=== PATIENT | female | born 1975 | race Caucasian/White ===

== ENCOUNTER → 2024-01-05 08:30 | Outpatient (REF) | payer BC, SELFPAY ==
[2024-01-05 09:23] LABS: % Basophils 0.4 % (0-2); % Eosinophils 4.1 % (0-6); % Immature Granulocytes 0.7 % (0-0.5); % Lymphocytes 27.2 % (20.5-51.1); % Monocytes 6.4 % (1.7-9.3); % Neutrophils 61.2 % (42.2-75.2); Absolute Eosinophils 0.3 10^3/uL (0-0.7); Absolute Immature Granulocytes 0.1 10^3/uL (0-0.05); Absolute Monocytes 0.5 10^3/uL (0.1-0.6); Absolute Neutrophils 4.6 10^3/uL (1.4-6.5); Hematocrit 37.3 % (37.0-47.0); Hemoglobin 13.2 g/dL (12.0-16.0); Mean Corp Hgb Conc. 35.4 g/dL (33.0-37.0); Mean Corpuscular Hgb 30.4 pg (27.0-31.0); Mean Corpuscular Volume 85.9 fL (81.0-99.0); Mean Platelet Volume 9.2 fL (7.4-10.4); Nucleated Red Blood Cells % 0 %; Platelet Count 315 10^3/uL (130-400); Red Blood Cell Count 4.34 10^6/uL (4.20-5.40); Red Cell Dist. Width 13.9 % (11.5-14.5); White Blood Cell Count 7.5 10^3/uL (4.8-10.8)
[2024-01-05 10:36] LABS: ALT (SGPT) 38 U/L (0-35); AST (SGOT) 33 U/L (14-36); Albumin 4.4 g/dl (3.5-5.0); Alkaline Phosphatase 78 U/L (38-126); Blood Urea Nitrogen 11 mg/dl (7-17); Calcium 9.6 mg/dl (8.4-10.2); Carbon Dioxide 24 mmol/L (22-30); Chloride 100 mmol/L (98-107); Glucose 109 mg/dl (70-99); HDL Cholesterol 53 mg/dl; LDL Cholesterol, Calculated 59 mg/dl; Potassium 4.6 mmol/L (3.5-5.1); Sodium 135 mmol/L (135-145); Total Bilirubin 0.9 mg/dl (0.2-1.3); Total Cholesterol 144 mg/dl (50-199); Total Protein 7.2 g/dl (6.3-8.2); Triglyceride 164 mg/dl (10-149); Very Low Density Lipoprotein 32 mg/dl (0-30); eGFR > 60.00
[2024-01-05 10:57] LABS: TSH Reflex To Free T4 1.76 uIU/ml (0.47-4.68)
[2024-01-05 11:52] LABS: Glycohemoglobin (HgbA1c) 6.2 % (4.0-5.6)
== END ==
LOC: REG 08:30
PROVIDERS: ATTENDING PHYSICIAN Internal Medicine; FAMILY PHYSICIAN Family Medicine
DX: R73.01 Impaired fasting glucose (principal); E78.2 Mixed hyperlipidemia; E03.9 Hypothyroidism, unspecified; C49.9 Malignant neoplasm of connective and soft tissue, unspecified
CPT/HCPCS: 36415; 80053; 80061; 83036; 84443; 85025

== ENCOUNTER → 2024-05-17 11:23 | Outpatient (REF) | payer BC, SELFPAY | LOC: WDC 11:23 | PROVIDERS: ATTENDING PHYSICIAN Obstetrics & Gynecology; FAMILY PHYSICIAN Family Medicine | DX: Z12.31 Encounter for screening mammogram for malignant neoplasm of breast (principal) | CPT/HCPCS: 77063; 77067 ==

== ENCOUNTER 2024-11-20 21:54 | Emergency (ER) | payer BC, SELFPAY ==
[2024-11-20 21:56] VITALS: BP 174/104
[2024-11-21 01:16] VITALS: BP 139/68
[2024-11-21 01:24] VITALS: BMI 30.1
[2024-11-21 01:28] LABS: % Basophils 0.4 % (0-2); % Eosinophils 1.7 % (0-6); % Immature Granulocytes 1.6 % (0-0.5); % Lymphocytes 22.9 % (20.5-51.1); % Monocytes 11.7 % (1.7-9.3); % Neutrophils 61.7 % (42.2-75.2); Absolute Eosinophils 0.1 10^3/uL (0-0.7); Absolute Immature Granulocytes 0.1 10^3/uL (0-0.05); Absolute Lymphocytes 1.9 10^3/uL (1.2-3.4); Absolute Neutrophils 5.1 10^3/uL (1.4-6.5); Hematocrit 23.7 % (37.0-47.0); Hemoglobin 8.1 g/dL (12.0-16.0); Mean Corp Hgb Conc. 34.2 g/dL (33.0-37.0); Mean Corpuscular Hgb 31.6 pg (27.0-31.0); Mean Corpuscular Volume 92.6 fL (81.0-99.0); Mean Platelet Volume 8.9 fL (7.4-10.4); Nucleated Red Blood Cells % 0.4 %; Platelet Count 222 10^3/uL (130-400); Red Blood Cell Count 2.56 10^6/uL (4.20-5.40); Red Cell Dist. Width 18.7 % (11.5-14.5); White Blood Cell Count 8.3 10^3/uL (4.8-10.8)
[2024-11-21 01:44] LABS: ALT (SGPT) 37 U/L (0-35); AST (SGOT) 24 U/L (14-36); Albumin 3.9 g/dl (3.5-5.0); Alkaline Phosphatase 101 U/L (38-126); Blood Urea Nitrogen 8 mg/dl (7-17); Calcium 9.5 mg/dl (8.4-10.2); Carbon Dioxide 27 mmol/L (22-30); Chloride 101 mmol/L (98-107); Estimated Creatinine Clearance > 125 ml/min; Glucose 110 mg/dl (70-99); Sodium 139 mmol/L (135-145); Total Bilirubin 0.8 mg/dl (0.2-1.3); Total Protein 5.9 g/dl (6.3-8.2); eGFR > 60.00
[2024-11-21 02:00] VITALS: BP 134/74
--- NOTE | 2024-11-21 02:01 | ED.GENMED ---
History of Present Illness
General
Chief Complaint: Swelling
Source: patient
Time Seen by Provider: 11/21/24 00:19
Nursing documentation reviewed up to this point in time: agreed with
History of Present Illness
History of Present Illness:
Pleasant 49-year-old female presents to the emergency department with left ankle swelling. She is getting IV chemotherapy for leiomyosarcoma. She currently on doxorubicin and noticed that her blood counts are low. She spoke with her oncologist
who advised her to come in to get an ultrasound of the leg. Patient states that she has some shortness of breath but reports that that this is normal when she is on her chemotherapeutic treatment. She states that her shortness of breath is her
baseline. Denies fever, chills, nausea or vomiting.
Past History
Past History
ED Past Medical History: Hypothyroidism and Other (Pre-diabetes on metformin)
ED Past Surgical History: Cholecystectomy and
Social History
Tobacco: Non-smoker
Alcohol: None
Drug: None
Personal:
Living: with family
Employment: Employed
Family History
Family History: Other (nc)
Review of Systems
Review of Systems
Allergies reviewed?: Yes
Other source history: family
All Other Systems: ROS reviewed and negative except as documented in HPI and ROS
Constitutional: Reports no symptoms
EENT: Reports no symptoms
Respiratory: Reports trouble breathing
Cardiac: Reports no symptoms
ABD/GI: Reports no symptoms
: Reports no symptoms
Musculoskeletal: Reports edema
Skin: Reports no symptoms
Neurological: Reports no symptoms
Endocrine: Reports no symptoms
Hematologic/Lymphatic: Reports no symptoms
Psychiatric: Reports no symptoms
Phy Exam
General Physical Exam
General Presentation: well appearing and mild distress
General Skin: warm and dry
General Habitus: normal
General Mental: alert
General Hydration: appears well hydrated
ENT Exam
ENT Exam: EOMI, pharynx normal, neck supple and normocephalic
Eye Exam
Eye Exam: PERRL, cornea clear and conjunctiva normal
Cardiovascular Exam
Cardiovascular Exam: regular rate/rhythm, no edema, no murmur and normal peripheral pulses
Pulmonary Exam
Pulmonary Exam: lungs clear, no respiratory distress, no rales, no crackles, no rhonchi, no stridor, no wheezing and no cough
Gastrointestinal Exam
Gastrointestinal Exam: normal bowel sounds, non tender, soft, no organomegaly, no pulsatile mass and non distended
Neurological Exam
Neurological Exam: alert, oriented x3, no motor deficits and speech normal
Musculoskeletal Exam
Musculoskeletal Exam: edema (Left lower extremity edema)
Skin Exam
Skin Exam: normal color, warm/dry, no rash and no petechia
Psychiatric Exam
Psychiatric Exam: normal mood/affect
Scores
Heart Failure Risk
Heart Failure Risk Score: Not Applicable
Course
Orders/Labs/Results
Orders:
Orders
11/20/24 21:59
EKG [Electrocardiogram (*1)] Urgent
Reason for Study: Shortness of Breath
11/20/24 22:00
EKG- Treatment ONCE
11/21/24 01:10
Complete Blood Count/With Diff Urgent
Comprehensive Metabolic Panel Urgent
11/21/24 01:52
US Legs, Left [US Periph Venous LOWER Ext LT] Urgent
Comment:
Reason For Exam: lower extremity swellig
Abnormal Lab Results
11/21/24
01:10
RBC 2.56 L 10^6/uL
(4.20-5.40)
Hgb 8.1 L g/dL
(12.0-16.0)
Hct 23.7 L %
(37.0-47.0)
MCH 31.6 H pg
(27.0-31.0)
RDW 18.7 H %
(11.5-14.5)
Abs Immat Gran (auto) 0.1 H 10^3/uL
(0-0.05)
Absolute Monos (auto) 1.0 H 10^3/uL
(0.1-0.6)
Immature Gran % 1.6 H %
(0-0.5)
Monocytes % 11.7 H %
(1.7-9.3)
Glucose 110 H mg/dl
(70-99)
ALT 37 H U/L
(0-35)
Total Protein 5.9 L g/dl
(6.3-8.2)
11/21/24 01:10
11/21/24 01:10
Vital Signs
Initial and Last Documented VS:
Initial Vital Signs
Temp Pulse Resp BP Pulse Ox
99.1 F 121 20 174/104 98
11/20/24 21:56 11/20/24 21:56 11/20/24 21:56 11/20/24 21:56 11/20/24 21:56
Last Documented Vital Signs
Temp Pulse Resp BP Pulse Ox
99.1 F 121 20 138/77 98
11/20/24 21:56 11/20/24 21:56 11/20/24 21:56 11/21/24 03:43 11/21/24 03:01
*Pulse Oximetry
Patient hypoxic: no
*EKG
Interpreted by ED Provider?: Yes
Comparison EKG: changes noted
Heart Rate: 109
Rate: tachycardiac
Rhythm: sinus
[place]: normal axis
Interval: normal interval
QRS Pattern: normal QRS
Ischemia: no ischemia
*Personal Finance Instructor Interpretation
Rate: normal
Interpretation: normal
Heart Rate: 72
*Critical Care Note
Total Time (30-74mins, 75-104mins- exclusive of procedures): Not Applicable
Update Note
Update Note:
Discussed hemoglobin of 8.1 with patient. She denies any obvious rectal bleeding. She states that she has been anemic during her chemotherapeutic treatments. Her last hemoglobin was approximately 10 and she received Neulasta. She states that she
was a few days late for the Neulasta. She will touch base with her oncologist at [facility] and discussed treatment options. She understands that she may have to return to the emergency department. Patient being discharged in stable
condition.
ED Attending Note
-
Portions of this chart may have been created with voice recognition software.� Occasional wrong word or��sound alike� substitutions may have occurred due to the inherent limitations of voice recognition software.
Discharge Plan
Departure
Patient Disposition: Home (Routine Discharge)
Date of Disposition: 11/21/24
Time of Disposition: 03:38
Patient with high blood pressure during this ER visit?: Yes
Discharge Problem:
Left leg swelling, Anemia
Instructions: Dependent Edema (DC), Swelling, Anemia overview, BLOOD PRESSURE
Prescriptions:
No Action
oxycodone-acetaminophen 5 MG/325 MG tablet
1 - 2 tab PO Q4HPRN PRN (Reason: pain not relieved by ibuprofen) Qty: 15 0RF
ibuprofen 200 MG tablet
600 mg PO Q6HPRN PRN (Reason: pain) Qty: 0 0RF
Referrals:
Homer Fajardo Jr., DO [Family Provider] -
Activity Restrictions/Additional Instructions:
As discussed, please follow-up with your oncologist at [facility]. A copy of your lab work has been provided.
It was a pleasure meeting you and taking part in your care. We hope for your continued healing and wellness.
Please read discharge instructions in their entirety. However, they are for general education and may not describe your exact diagnosis at discharge. Information on your ER visit and medical conditions were discussed with you along with appropriate
follow up information...
If indicated, please take your medications as instructed and indicated on discharge paperwork.
Please schedule a follow up appointment as directed. Call to schedule an appointment
Please return to the emergency department with ANY change in, persisting, or worsening of symptoms. If any of your symptoms do not improve, or persist, or become more severe within 6-12 hours, please return to the emergency department for further
care.
Please return to the emergency department if you develop a headache, neck pain/stiffness, fever greater than 100.4F, chest pain, shortness of breath, persistent nausea, vomiting, slurred speech, difficulty walking, numbness/tingling, weakness, signs
of infection or any other symptoms that are worrisome to you.
If you have any questions or concerns please do not hesitate to call the Hospital at or E-mail me directly at [email or web address]
Interventions
Interventions:
*Risk Screen - Suicide Last Done: 11/20/24 21:56
*General Assessment Last Done: 11/21/24 01:17
*Neglect/Abuse Screening Last Done: 11/20/24 21:56
ED- Fall Risk Assessment Last Done: 11/21/24 01:24
*ED COVID-19 Vaccine History Last Done: 11/21/24 01:17
*Nursing Disposition Last Done: 11/21/24 03:51
ED- Cardiac Assessment Last Done: 11/21/24 01:24
ED- Pulmonary Assessment Last Done: 11/21/24 01:16
ED-Skin Assessment Last Done: 11/21/24 01:16
Discharge Date and Time
Discharge Date/Time: 11/21/24 03:51
Print Language: CROATIAN
[2024-11-21 03:43] VITALS: BP 138/77
== END 2024-11-21 03:51 | disposition home or self-care (01) ==
LOC: EMR 21:54
PROVIDERS: EMERGENCY PHYSICIAN Student in an Organized Health Care Education/Training Program; FAMILY PHYSICIAN Family Medicine
DX: R22.42 Localized swelling, mass and lump, left lower limb (principal); D64.9 Anemia, unspecified; E03.9 Hypothyroidism, unspecified; R73.03 Prediabetes; Z90.49 Acquired absence of other specified parts of digestive tract
CPT/HCPCS: 99283; 80053; 85025; 93005; 93971

== ENCOUNTER 2024-12-26 03:08 | Inpatient (IN) | payer BC, SELFPAY ==
[2024-12-25 20:59] VITALS: BP 147/79
[2024-12-25 21:36] VITALS: BP 117/68
[2024-12-25 21:38] VITALS: BMI 36.4
[2024-12-25 23:20] LABS: Hematocrit 20.8 % (37.0-47.0); Hemoglobin 7.3 g/dL (12.0-16.0); Mean Corp Hgb Conc. 35.1 g/dL (33.0-37.0); Mean Corpuscular Hgb 33.3 pg (27.0-31.0); Red Blood Cell Count 2.19 10^6/uL (4.20-5.40); Red Cell Dist. Width 14.4 % (11.5-14.5); White Blood Cell Count 1.9 10^3/uL (4.8-10.8)
[2024-12-25 23:23] LABS: Blood Urea Nitrogen 10 mg/dl (7-17); Carbon Dioxide 23 mmol/L (22-30); Chloride 102 mmol/L (98-107); Estimated Creatinine Clearance > 125 ml/min; Glucose 151 mg/dl (70-99); Potassium 3.9 mmol/L (3.5-5.1); Sodium 136 mmol/L (135-145); eGFR > 60.00
[2024-12-25 23:43] LABS: Mean Platelet Volume 10.2 fL (7.4-10.4); Platelet Count 86 10^3/uL (130-400); Segmented Neutrophils 22 % (42-75)
[2024-12-25 23:44] LABS: Band Neutrophils 0 % (0-3); Lymphocytes 70 % (20-51); Monocytes 8 % (2-9); Normal RBC Morphology Yes; Platelets Checked Yes; Total Cells Counted 100
[2024-12-25 23:45] LABS: Absolute Neutrophils -Man Diff 0.4 10^3/uL (1.4-6.5)
--- NOTE | 2024-12-25 23:46 | ED.GENMED ---
History of Present Illness
General
Chief Complaint: Abnormal Lab Value
Source: patient and family
Time Seen by Provider: 12/25/24 21:37
History of Present Illness
History of Present Illness:
49-year-old female who presents for evaluation as she has been feeling short of breath and weak. She was seen at an 'urgent care' associated with [facility]. She had extensive workup including a CT to rule out PE. They advised that she go to
a nearby hospital for transfusion but she wanted to come to [place]. Patient is being treated with chemotherapy for leiomyosarcoma. Patient states she has been on it for several months. She is due for another treatment on January 06. She was
advised that she also may benefit from an echocardiogram to rule out cardiomyopathy related to her chemo. No chest pain. Patient states that she really just does not feel well in general. She presents with paperwork that is scanned in from the
urgent care center. In addition, she presents agraffe her hemoglobin that was normally at 12 but has dropped over time.
Past History
Past History
ED Past Medical History: Cancer (leiomyomyosarcoma), Hypothyroidism and Other (Pre-diabetes on metformin)
ED Past Surgical History: Cholecystectomy and
Social History
Tobacco: Non-smoker
Alcohol: None
Drug: None
Personal:
Living: with family
Employment: Employed
Family History
Family History: Other (nc)
Phy Exam
Physical Exam
Physical Exam:
CONSTITUTIONAL Vital signs reviewed, Patient alert and oriented to person, place and time. Well-appearing
HEAD atraumatic, normocephalic.
EYES eyelids normal to inspection, Extraocular muscles intact, Conjunctiva normal, Sclera normal.
NECK normal range of motion, Trachea midline, no jugular venous distention.
RESP no respiratory distress
BACK No obvious deformities
Cardiovascular regular and tachycardic
UPPER EXTREMITY Gross Range of motion normal, gross motor strength normal
LOWER EXTREMITY Gross range of motion normal, Gross motor strength normal
NEURO Speech normal, No focal motor deficits include, [place] coma scale 15, Memory normal, Cranial Nerves intact to screening exam.
SKIN Skin warm, dry, and normal in color.
PSYCHIATRIC Patient oriented to person place and time, Normal affect.
Course
Orders/Labs/Results
Orders:
Orders
12/25/24 22:11
* Blood Bank Products Urgent
Blood Bank Products: *Packed RBC Leuko(PRBC's)
Quantity: 1
Transfuse Today: Yes
Reason: Anemia
12/25/24 22:12
IV Insert/Care/Rem.- Treatment PRN
12/25/24 22:56
Type+Screen Urgent
Basic Metabolic Panel Urgent
Complete Blood Count/With Diff Urgent
Manual Differential Urgent
12/25/24 23:46
COVID-19 Antigen Urgent
Source: Nasal Swab
Influenza A+B Rapid Molecular Urgent
VLAD Source: Nasal Swab
Specimen Description:
12/25/24 23:52
Electrocardiogram (*1) Urgent
Reason for Study: Shortness of Breath
EKG- Treatment ONCE
12/25/24 23:54
Lactic Acid Q4H
Comment: CANCEL 2nd LACTIC ACID IF 1st LACTIC ACID IS LESS THAN 2
Blood Culture Q30M
VLAD Source: Blood/Venous
Specimen Description:
12/26/24 00:00
CR Chest - 2 Views Urgent
Reason For Exam: Shortness of breath, neutropenia
12/26/24 00:07
Blood Culture Q30M
VLAD Source: Blood/Venous
Specimen Description:
12/26/24 03:54
Lactic Acid Q4H
Comment: CANCEL 2nd LACTIC ACID IF 1st LACTIC ACID IS LESS THAN 2
Abnormal Lab Results
12/25/24 12/26/24
22:56 00:07
WBC 1.9 L* 10^3/uL
(4.8-10.8)
RBC 2.19 L 10^6/uL
(4.20-5.40)
Hgb 7.3 L g/dL
(12.0-16.0)
Hct 20.8 L* %
(37.0-47.0)
MCH 33.3 H pg
(27.0-31.0)
Plt Count 86 L 10^3/uL
(130-400)
Abs Neuts (Manual) 0.4 L* 10^3/uL
(1.4-6.5)
Segmented Neutrophils 22 L %
(42-75)
Lymphocytes (Manual) 70 H %
(20-51)
Glucose 151 H mg/dl
(70-99)
Lactic Acid 2.2 H mmol/L
(0.7-2.0)
Crossmatch IS Only See Detail
12/25/24 22:56
12/25/24 22:56
Vital Signs
Initial and Last Documented VS:
Initial Vital Signs
Temp Pulse Resp BP Pulse Ox
99.1 F 120 22 147/79 99
12/25/24 20:59 12/25/24 20:59 12/25/24 20:59 12/25/24 20:59 12/25/24 20:59
Last Documented Vital Signs
Temp Pulse Resp BP Pulse Ox
99.1 F 107 20 117/68 98
12/25/24 20:59 12/26/24 00:00 12/26/24 00:00 12/25/24 21:36 12/26/24 00:00
MDM/Problems Addressed
Differential Diagnosis Includes:
Viral myelosuppression, chemotherapeutic myelosuppression, pneumonia, electrolyte disturbance
MDM/Problems Addressed:
Pancytopenia, symptomatic anemia
*Pulse Oximetry
Patient hypoxic: no
*Linemarker Interpretation
Rate: tachycardiac
Interpretation: abnormal
Rhythm: sinus
*Critical Care Note
Total Time (30-74mins, 75-104mins- exclusive of procedures): Not Applicable
Data Reviewed
Review of Other/Old Records Reveals: Labs (Prior labs reviewed showing a trend downward of her hemoglobin)
Source: patient and family
Further Testing Considered But Not Given:
Considered CT scan but patient had a PE study prior to arrival
Patient Management
Discussion with other providers: Field Ironworker (Case discussed with her oncologist who recommends admission given her pancytopenia)
Escalation/DeEscalation of care consider admission/obs:
49-year-old female presents with feeling short of breath and weak. Found to have pancytopenia. Question whether it is related to infection versus myelosuppression related to her chemotherapeutic agents despite being on it for several months. Case
discussed with her oncologist who recommends admission. Hemodynamically she is still tachycardic but otherwise stable. Transfuse 1 unit for now and continue to monitor. Check cultures, chest x-ray, viral swabs
ED Attending Note
-
Portions of this chart may have been created with voice recognition software.� Occasional wrong word or��sound alike� substitutions may have occurred due to the inherent limitations of voice recognition software.
Discharge Plan
Departure
Patient Disposition: Admit
Date of Disposition: 12/25/24
Time of Disposition: 23:55
Admit to: Telemetry
Presentation/result/management discussed w/ accepting MD/DO: Hospitalist
Discharge Problem:
Pancytopenia, Symptomatic anemia
Prescriptions:
No Action
oxycodone-acetaminophen 5 MG/325 MG tablet
1 - 2 tab PO Q4HPRN PRN (Reason: pain not relieved by ibuprofen) Qty: 15 0RF
ibuprofen 200 MG tablet
600 mg PO Q6HPRN PRN (Reason: pain) Qty: 0 0RF
Referrals:
Homer Fajardo Jr., DO [Family Provider] -
Interventions
Interventions:
*Risk Screen - Suicide Last Done: 12/25/24 21:02
*General Assessment Last Done: 12/25/24 20:59
*Neglect/Abuse Screening Last Done: 12/25/24 20:59
*ED- Fall Risk Assessment Last Done: 12/25/24 21:38
*ED COVID-19 Vaccine History Last Done: 12/25/24 20:59
Discharge Date and Time
Print Language: BARBADIAN
--- NOTE | 2024-12-25 23:54 | VATNOTE ---
PT ARRIVED TO ED FROM [facility] WITH L SUBQ PRT ACCESSED. PT HERE FOR BLOOD TRANSFUSION. PT REPORTS ON GOING PROBLEMS WITH BLOOD WITHDRAWAL FROM PRT RECENTLY TODAY AT [facility]. DESPITE MULTIPLE ATTEMPTS UNABLE TO DRAW LABS FROM PRT. PT TO
REQUEST DYE STUDY FROM HER ONCOLOGIST AND CARE TEAM AT [facility]. LABS OBTAINED PERIPHERLLY . PRT ERICK TO BE USED FOR BLOOD TRANSFUSION WAS USED TODAY AT [facility] FOR MULTIPLE TREATMENT MODALITIES.
[2024-12-26] VITALS (10 sets, daily range): BP systolic 113–136; BP diastolic 66–81
[2024-12-26 00:31] LABS: Lactic Acid 2.2 mmol/L (0.7-2.0)
--- NOTE | 2024-12-26 02:24 | HPS.HSE ---
Family Physician
-
Family Physician: Homer Fajardo Jr.
Chief Complaint
-
SOB
History of Present Illness
Patient is a 49y F with PMH significant for leiomyosarcoma followed at [facility] who presents to ED complaining of SOB and pancytopenia. Patient is currently receiving chemotherapy at [facility] with doxorubicin and trabectedin and
received her most recent dose on 12/16. Patient states that she has experienced gradually progressive symptoms of weakness / fatigue following these treatments. This week her symptoms were severe and she presented to a [facility]associated Urgent Care
for evaluation. Patient was noted there to have pancytopenia. It was recommended that she be admitted to a hospital for blood transfusion and patient elected to present to (close to where she lives).
Other work-up done at that time included CT of the chest. This was negative for PE. Some pulmonary nodules were appreciated as well as bibasilar (R > L) ground glass opacities - consistent with inflammation, infection or atelectasis.
CT also showed small pericardial effusion.
Patient states that she has felt fairly well other than fatigue and dyspnea. No fevers / chills, cough, N/V/D, etc.
She has had issues with low cell counts since beginning chemo - and these have also been progressive.
She does receive Neulasta via auto-injector following her chemo treatments and had this dose last week ( / ).
In the ED, patient is resting comfortably and in no distress.
Medical History
Past Medical History
Past Medical History: Reports Other
Additional Past Medical History:
Metastatic Leiomyosarcoma
Appendiceal Carcinoma
SDHA Gene Mutation
PCOS
Hypothyroidism
Obesity
Anxiety / Depression
Past Surgical History: Reports Other
Additional Past Surgical History:
Left Ovarian Vein / Leiomyosarcoma Resection
Appendectomy
Cholecystectomy
D&E
Social History
Tobacco: Non-smoker
Alcohol: None
Drug: None
Family History
Family History: Adopted
Allergies / Home Medications
Allergies reflects when Allergies were last updated in [facility].
Home Medications with original date entered in [facility]
Allergy/Medication List:
Allergies
Allergy/AdvReac Type Severity Reaction Status Date / Time
No Known Allergies Allergy Verified 12/26/24 01:17
Home Medications
acetaminophen 500 mg tablet 1,000 mg PO TID 12/26/24
atorvastatin 10 mg tablet 10 mg PO HS 12/26/24
bupropion HCl 300 mg 24 hr tablet, extended release 300 mg PO DAILY 12/26/24
cholecalciferol (vitamin D3) 50 mcg (2,000 unit) tablet 50 mcg PO DAILY 12/26/24
levothyroxine 100 mcg tablet 100 mcg PO DAILY 12/26/24
metformin 500 mg tablet,extended release 24hr (osmotic) 500 mg PO BID 12/26/24
olanzapine 2.5 mg tablet 2.5 mg PO HS 12/26/24
omega 3-vitamin E-fish oil 700 mg-15 unit-1,100 mg capsule 1 cap PO 12/26/24
Review of Systems
-
History Source: Patient
A 12 point ROS was completed and negative except as noted: Yes
Constitutional: Reports Fatigue; Denies Fever or Chills
EENT: Denies Sore Throat
Respiratory: Reports Trouble Breathing; Denies Cough
Cardiac: Reports Palpitations; Denies Chest Pain
Abdomen/GI: Denies Abdominal Pain, Nausea, Vomiting or Diarrhea
: Denies Dysuria or Frequency
Musculoskeletal: Denies Joint Pain or Edema
Neurological: Denies Dizzy or Headache
Psych: Denies Depression or Anxiety
Physical Exam
Vital Signs
Vital Signs
Temp Pulse Resp BP Pulse Ox
98.8 F 103 22 136/68 96
12/26/24 01:09 12/26/24 01:45 12/26/24 01:45 12/26/24 01:09 12/26/24 01:45
Physical Exam
General: Other (49y F in no acute distress.)
HEENT: Moist mucous membranes and PERRLA
Respiratory: Clear; No Wheezes, Rales or Rhonchi
Cardiac: S1/S2 and Regular Rhythm; No Murmur
GI: Soft, Non Tender, Non Distended and Normal Bowel Sounds
Musculoskeletal: No Clubbing, No Cyanosis and No Edema
Neuro: AO x 3
Laboratory Results
-
12/25/24 22:56
12/25/24 22:56
Laboratory Results
Lactic Acid 2.2 mmol/L (0.7-2.0) H 12/26/24 00:07
Impression/Plan
-
A/P: Patient is a 49y F with PMH significant for metastatic leiomyosarcoma on chemotherapy who presents to ED for evaluation of pancytopenia and associated SOB / fatigue.
Symptomatic Anemia
Neutropenia
Thrombocytopenia
- Admit for further evaluation and treatment.
- PRBC transfusion ordered in the ED.
- Follow for improvement in H&H and symptoms.
- Check iron studies and replace if needed.
- Follow neutropenic precautions. ANC = 400. Afebrile / non-toxic appearing at present.
- Received Neulasta last week (27 hours post-chemo).
- HemeOnc eval - ? additional GCSF needed.
- Follow temperature curve and monitor for any new symptoms - low threshold to begin empiric abx if needed.
- Follow for any evidence of bleeding, etc.
Pericardial Effusion
- Seen on outside CT scan (done at [facility]) - patient has results on her phone / portal.
- Check Echo.
Metastatic Leiomyosarcoma
- On chemotherapy with doxorubicin and trabectedin - last dose 12/16 (dose #6).
- Followed at [facility]. Follow-up with usual providers after discharge.
Hypothyroidism
PCOS
- Stable. Hold metformin s/p CTA done 12/25/24.
- Continue usual T4 supplementation.
Anxiety / Depression
- Stable. Continue usual home regimen.
DVT Prophylaxis: SCDs
Code Status: Full
[2024-12-26 04:43] LABS: TSH Reflex To Free T4 2.23 uIU/ml (0.47-4.68)
[2024-12-26] MEDS: SYNTHROID 100 MCG PO (06:35)
[2024-12-26 07:07] LABS: Blood Urea Nitrogen 8 mg/dl (7-17); Calcium 8.9 mg/dl (8.4-10.2); Carbon Dioxide 29 mmol/L (22-30); Chloride 104 mmol/L (98-107); Estimated Creatinine Clearance > 125 ml/min; Glucose 119 mg/dl (70-99); Magnesium 1.9 mg/dl (1.6-2.3); Potassium 3.8 mmol/L (3.5-5.1); Sodium 138 mmol/L (135-145); eGFR > 60.00
[2024-12-26 07:11] LABS: Hematocrit 23.4 % (37.0-47.0); Hemoglobin 8.2 g/dL (12.0-16.0); Mean Corpuscular Hgb 32.3 pg (27.0-31.0); Mean Corpuscular Volume 92.1 fL (81.0-99.0); Mean Platelet Volume 9.5 fL (7.4-10.4); Platelet Count 75 10^3/uL (130-400); Red Blood Cell Count 2.54 10^6/uL (4.20-5.40); Red Cell Dist. Width 15.5 % (11.5-14.5); White Blood Cell Count 1.8 10^3/uL (4.8-10.8)
[2024-12-26] MEDS: TYLENOL 1000 MG PO (08:24)
[2024-12-26] MEDS: VITAMIN D3 (cholecalciferol) 50 MCG PO (08:24)
[2024-12-26] MEDS: WELLBUTRIN XL (24 hour extended release) 300 MG PO (09:48)
--- NOTE | 2024-12-26 09:56 | CON.ONC ---
Documented by User: MICHAEL Staples 12/26/24 11:06
Impression
Impression
metastatic leiomyosarcoma followed at [facility] [place]
pancytopenia secondary to doxorubicin and trabectedin with last dose on 12/16
small pericardial effusion
Plan
Plan
neutropenic precautions -remains afebrile -monitor for sxs infection
no role for add'l GCSF with pegfilgrastim 12/17
monitor for cardiomyopathy, rhabdomyolysis, neutropenic sepsis, hepatoxicity, capillary leak syndrome
f/u echo
transfuse Hgb <7g/dL or as needed for sxs anemia
avoid nsaids, anticoagulation, antiplatelet if platelets <50,000
follow cultures
check LFTs, cpk
OP follow up with primary oncologist
No hematologic barriers to discharge if CBC stable, no sxs infection, culture negative, and afebrile.
Patient History
History of Present Illness
49yo F with metastatic leiomyosarcoma followed at [facility] [place] presented for evaluation of SOB and fatigue. She had her last chemo, doxorubicin and trabectedin on 12/16/2024 with GCSF. Initial evaluation is notable for WBC 1.9, ANC 400, Hgb 7.3, Hct 20.8,
platelet count 86,000. Her CTA done at outside imaging at [facility] was negative for pulmonary emboli but did show some pulmonary nodules and a small pericardial effusion. Blood cultures are pending. She was admitted and transfused
with 1U PRBC.
Clinically, she denies fever, chills, cough, chest pain, palpitations, n/v/d/c or abdominal pain. She denies headache or any neurological changes.
Afebrile, no hypoxia or hypotension
Past-Medical/Surgical History
Past Medical History:
Metastatic Leiomyosarcoma
Appendiceal Carcinoma
SDHA Gene Mutation
PCOS
Hypothyroidism
Obesity
Anxiety / Depression
Past Surgical History:
Left Ovarian Vein / Leiomyosarcoma Resection
Appendectomy
Cholecystectomy
D&E
Social History
Tobacco: Non-smoker
Alcohol: None
Drug: None
Family non-contributory
Patient Medication
�Medication �Instructions �Recorded �Confirmed �Last Taken �Type
acetaminophen 500 mg tablet 1,000 mg PO TID 12/26/24 12/26/24 Unknown History
atorvastatin 10 mg tablet 10 mg PO HS 12/26/24 12/26/24 Unknown History
bupropion HCl 300 mg 24 hr tablet, 300 mg PO DAILY 12/26/24 12/26/24 Unknown History
extended release
cholecalciferol (vitamin D3) 50 50 mcg PO DAILY 12/26/24 12/26/24 Unknown History
mcg (2,000 unit) tablet
levothyroxine 100 mcg tablet 100 mcg PO DAILY 12/26/24 12/26/24 Unknown History
metformin 500 mg tablet,extended 500 mg PO BID 12/26/24 12/26/24 Unknown History
release 24hr (osmotic)
olanzapine 2.5 mg tablet 2.5 mg PO HS 12/26/24 12/26/24 Unknown History
omega 3-vitamin E-fish oil 700 1 cap PO 12/26/24 Unknown History
mg-15 unit-1,100 mg capsule
Active Medications
Generic Name Dose Route Start Last Admin
Trade Name Avniq PRN Reason Stop Dose Admin
Acetaminophen 1,000 mg 12/26/24 08:00 12/26/24 08:24
Acetaminophen 500 Mg Tablet PO 01/23/25 07:59 1,000 mg
TID DONNELL Administration
Atorvastatin Calcium 10 mg 12/26/24 22:00
Atorvastatin (Lipitor) 10 Mg Tablet PO 01/23/25 21:59
HS DONNELL
Bupropion HCl 300 mg 12/26/24 08:00 12/26/24 09:48
Bupropion (24hr) Extended Release 300 Mg Tablet PO 01/23/25 07:59 300 mg
DAILY DONNELL Administration
Cholecalciferol 50 mcg 12/26/24 08:00 12/26/24 08:24
Cholecalciferol (Vitamin D3) 50 Mcg Tablet (2,000 Units) PO 01/23/25 07:59 50 mcg
DAILY DONNELL Administration
Levothyroxine Sodium 100 mcg 12/26/24 06:00 12/26/24 06:35
Levothyroxine 100 Mcg Tablet PO 01/23/25 05:59 100 mcg
DAILY@0600 DONNELL Administration
Olanzapine 2.5 mg 12/26/24 22:00
Olanzapine 2.5 Mg Tablet PO 01/23/25 21:59
HS DONNELL
Sodium Chloride 0 flush 12/26/24 04:00
Sodium Chloride 0.9% (Flush) Syringe IV 01/23/25 03:59
PER PROTOCOL DONNELL
Review of Systems
-
ROS is notable for HPI, otherwise negative
Physical Exam
-
ROS is notable for HPI, otherwise negative
General: No Apparent Distress
HEENT: Moist Mucous Membranes; Negative Jaundice
Cardiology: Normal Sinus Rhythm
Pulmonary: Clear
GI: Soft
Extremities: Pulses Present; Negative Edema
Neurology: Non Focal
Skin: Warm
Psych: Calm
Labs
Lab Results
WBC 1.8 10^3/uL (4.8-10.8) L* 12/26/24 06:43
RBC 2.54 10^6/uL (4.20-5.40) L 12/26/24 06:43
Hgb 8.2 g/dL (12.0-16.0) L 12/26/24 06:43
Hct 23.4 % (37.0-47.0) L 12/26/24 06:43
MCV 92.1 fL (81.0-99.0) 12/26/24 06:43
MCH 32.3 pg (27.0-31.0) H 12/26/24 06:43
MCHC 35.0 g/dL (33.0-37.0) 12/26/24 06:43
RDW 15.5 % (11.5-14.5) H 12/26/24 06:43
Plt Count 75 10^3/uL (130-400) L 12/26/24 06:43
MPV 9.5 fL (7.4-10.4) 12/26/24 06:43
Creatinine 0.6 mg/dL (0.6-1.0) 12/26/24 06:43
Vital Signs
Vital Signs
Temp Pulse Resp BP Pulse Ox
98.6 F 100 18 113/69 97
12/26/24 08:31 12/26/24 04:02 12/26/24 04:02 12/26/24 04:02 12/26/24 04:01

Documented by User: Darrel Rodriges MD 12/26/24 12:35
Impression
Impression
metastatic leiomyosarcoma followed at [facility] [place]
pancytopenia secondary to doxorubicin and trabectedin with last dose on 12/16
small pericardial effusion
Oncology Addendum:
Agree w/ [employer] note and plan as outlined
f/u w/ [facility] [place]
[2024-12-26 10:26] LABS: % Eosinophils 2.2 % (0-6); % Immature Granulocytes 0.6 % (0-0.5); % Lymphocytes 58.7 % (20.5-51.1); % Monocytes 12.3 % (1.7-9.3); % Neutrophils 26.2 % (42.2-75.2); Absolute Lymphocytes 1.1 10^3/uL (1.2-3.4); Absolute Monocytes 0.2 10^3/uL (0.1-0.6); Absolute Neutrophils 0.5 10^3/uL (1.4-6.5); Nucleated Red Blood Cells % 0 %
[2024-12-26 10:51] LABS: ALT (SGPT) 46 U/L (0-35); AST (SGOT) 17 U/L (14-36); Albumin 3.4 g/dl (3.5-5.0); Alkaline Phosphatase 89 U/L (38-126); Creatine Phosphokinase < 20 U/L (30-135); Direct Bilirubin 0.2 mg/dl (0.0-0.4); Total Bilirubin 0.7 mg/dl (0.2-1.3); Total Protein 5.4 g/dl (6.3-8.2)
--- NOTE | 2024-12-26 10:55 | CM ---
Patient seen at bedside with in ED. Patient states she wants to go home. Patient PCP is Dr. Fajardo and she is currently on Chemo from [facility]. Patient lives in a 2 story home with no DME. Patient uses the [address] [facility] and she is
driving and independent. CM will continue to follow for discharge planning needs.
Plan; home with no needs.
--- NOTE | 2024-12-26 10:57 | W.PN.HOSP.TC ---
Today's Communication/Plan
-
Discharge
Assessment / Plan
Assessment / Plan
Gen-AAOx3, NAD
HEENT-NC, AT, anicteric, clear oral mm
Neck-supple
CV-reg, no M, +S1/S2
Lungs-clear B/L
Abd-soft, NT, ND
Ext-no edema
Musculoskeletal-no cyanosis, clubbing
Skin-warm and dry
Neuro-grossly non-focal
Psych-calm, cooperative
Symptomatic anemia -likely due to chemotherapy. Hemoglobin improved to 8.2 after transfusion. Symptomatically better.
Chemotherapy-induced pancytopenia -no fevers. No signs of infection. ANC 500. Follow-up closely with oncology. Spoke with oncology service, okay for discharge.
Metastatic leiomyosarcoma -follow[place]up with [facility] [place].
Questionable pericardial effusion -noted on CT scan. Offered echocardiogram to patient but she prefers to go home and get done as an outpatient. She has no signs or symptoms of pericardial effusion on exam.
Hypothyroidism -levothyroxine.
PCOS
Anxiety/depression
Obesity due to excess calories
Full code
Dispo -stable for discharge home today. Outpatient follow-up.
Anticipated Discharge: Today
Subjective/Interval History
-
Date of Service: December 26, 2024
Patient seen and examined. Feeling better. No complaints. Eager to go home.
Objective Data
-
Labs:
Laboratory Results
12/25/24 12/26/24
22:56 06:43
WBC 1.9 L* 1.8 L*
Hgb 7.3 L 8.2 L
Hct 20.8 L* 23.4 L
Plt Count 86 L 75 L
Sodium 136 138
Potassium 3.9 3.8
Chloride 102 104
Carbon Dioxide 23 29
BUN 10 8
Creatinine 0.6 0.6
Glucose 151 H 119 H
Calcium 9.0 8.9
Total Bilirubin 0.7
AST 17
ALT 46 H
Alkaline Phosphatase 89
Vital Signs:
Vital Signs
Temp Pulse Resp BP Pulse Ox
98.6 F 100 18 113/69 97
12/26/24 08:31 12/26/24 04:02 12/26/24 04:02 12/26/24 04:02 12/26/24 04:01
I&O
12/25/24 12/26/24 12/27/24
06:59 06:59 06:59
Intake Total 250 / 250
Balance 250 / 250
Review of Systems
-
History Source: Patient
All other systems: Reviewed and negative
--- NOTE | 2024-12-26 11:01 | W.DS.TRANS ---
DC Summary - Transport Driver
-
Discharge Instructions:
Discharge Diagnosis/Procedures Symptomatic anemia, pancytopenia
Diet Regular
Activity As tolerated
Driving Restrictions As prior to admission
Bathing Restrictions None
Blood Work CBC next week with your oncologist
Instructions:
Stand-Alone Forms:
Changes to Home Medications: No
Discharge Medications:
DC Medications w/original date entered in [employer]
acetaminophen 500 mg tablet 1,000 mg PO TID 12/26/24
atorvastatin 10 mg tablet 10 mg PO HS 12/26/24
bupropion HCl 300 mg 24 hr tablet, extended release 300 mg PO DAILY 12/26/24
cholecalciferol (vitamin D3) 50 mcg (2,000 unit) tablet 50 mcg PO DAILY 12/26/24
levothyroxine 100 mcg tablet 100 mcg PO DAILY 12/26/24
metformin 500 mg tablet,extended release 24hr (osmotic) 500 mg PO BID 12/26/24
olanzapine 2.5 mg tablet 2.5 mg PO HS 12/26/24
omega 3-vitamin E-fish oil 700 mg-15 unit-1,100 mg capsule 1 cap PO 12/26/24
Home Medication Changes
Pending Results: No
== END 2024-12-26 12:08 | disposition home or self-care (01) | DRG 809 ==
LOC: ED 03:08
PROVIDERS: ADMITTING PHYSICIAN Hospitalist; ATTENDING PHYSICIAN Hospitalist; EMERGENCY PHYSICIAN Emergency Medicine; FAMILY PHYSICIAN Family Medicine; OTHER PHYSICIAN Internal Medicine Hematology & Oncology
PROC: 30233N1 Transfusion of Nonautologous Red Blood Cells into Peripheral Vein, Percutaneous Approach (ICD-10-PCS; 2024-12-26)
DX: D61.810 Antineoplastic chemotherapy induced pancytopenia (principal); C49.9 Malignant neoplasm of connective and soft tissue, unspecified; I31.39 Other pericardial effusion (noninflammatory); T45.1X5A Adverse effect of antineoplastic and immunosuppressive drugs, initial encounter; Z11.52 Encounter for screening for COVID-19; E03.9 Hypothyroidism, unspecified; E28.2 Polycystic ovarian syndrome; F32.A Depression, unspecified; F41.9 Anxiety disorder, unspecified; E66.09 Other obesity due to excess calories; Z68.36 Body mass index [BMI] 36.0-36.9, adult; Z79.899 Other long term (current) drug therapy
CPT/HCPCS: 80048; 80053; 82248; 82550; 83605; 83735; 84443; 85025; 86850; 86900; 86901; 86920; 87040; 93005; P9016

== ENCOUNTER 2025-01-17 09:16 | Emergency (ER) | payer BC, SELFPAY ==
[2025-01-17 09:22] VITALS: BP 150/99
--- NOTE | 2025-01-17 10:43 | ED.GENMED ---
History of Present Illness
<Willian Bassett PA-C - Last Filed: 01/17/25 15:28>
General
Chief Complaint: Chest Pain
Time Seen by Provider: 01/17/25 10:23
History of Present Illness
History of Present Illness:
49-year-old female with history of metastatic leiomyosarcoma currently being managed by [facility] with chemotherapy presents to the emergency department for evaluation of left-sided chest discomfort rating to the left neck and left
ear for the past 3 days. Worse when lying flat but improved when upright. Nonpleuritic. Did not feel febrile at home but noted to be febrile on arrival. No coughing or shortness of breath. No leg swelling. Did have a recent CT scan for cancer
screening 11 days ago at her facility that showed no cardiopulmonary disease
Past History
<Willian Bassett PA-C - Last Filed: 01/17/25 15:28>
Past History
ED Past Medical History: Cancer (leiomyomyosarcoma), Hypothyroidism and Other (Pre-diabetes on metformin)
ED Past Surgical History: Cholecystectomy and
Social History
Tobacco: Non-smoker
Alcohol: None
Drug: None
Personal:
Living: with family
Employment: Employed
Family History
Family History: Other (nc)
Review of Systems
<Willian Bassett PA-C - Last Filed: 01/17/25 15:28>
Review of Systems
Allergies reviewed?: Yes
All Other Systems: ROS reviewed and negative except as documented in HPI and ROS
Phy Exam
<Willian Bassett PA-C - Last Filed: 01/17/25 15:28>
Physical Exam
Physical Exam:
GEN: Well appearing, NAD, WDWN
HEENT: Oral mucosa moist, no scleral icterus
Cardiac: Regular rate and rhythm, no murmur, no reproducible chest wall pain
Lung: No respiratory distress, no tachypnea, lungs clear to auscultation bilaterally
MSK: No gross deformity or injuries
Skin: Good color, no pallor or jaundice, no rashes
Neuro: AO x3, moves all extremities freely
Psych: Calm, cooperative
Scores
<Willian Bassett PA-C - Last Filed: 01/17/25 15:28>
Heart Score for Chest Pain Patients
STEMI patient?: Not applicable
Course
<Willian Bassett PA-C - Last Filed: 01/17/25 15:28>
Orders/Labs/Results
Orders:
Orders
01/17/25 09:17
ECG [Electrocardiogram (*1)] Urgent
Reason for Study: Chest Pain
EKG- Treatment ONCE
01/17/25 10:36
CR Chest - 2 Views Urgent
Comment:
Reason For Exam: chest pain
01/17/25 10:46
COVID-19 Antigen Urgent
Source: Nasal Swab
Complete Blood Count/With Diff Urgent
Comprehensive Metabolic Panel Urgent
Lactic Acid Q4H
Comment: CANCEL 2nd LACTIC ACID IF 1st LACTIC ACID IS LESS THAN 2
NT-proBNP Urgent
Troponin I Urgent
Blood Culture Q30M
VLAD Source: Blood/Venous
Specimen Description:
Blood Culture Q30M
VLAD Source: Blood/Venous
Specimen Description:
Influenza A+B Rapid Molecular Urgent
VLAD Source: Nasal Swab
Specimen Description:
01/17/25 13:45
D-Dimer Urgent
Lactate Level [Lactic Acid] Urgent
01/17/25 13:49
Ketorolac [Toradol] 15 mg .ROUTE .STK-MED ONE
Ketorolac [Toradol] 15 mg IV NOW STA
01/17/25 14:18
Add On- LAB Urgent
Tests Added?: CRP
01/17/25 15:14
Urinalysis Reflex To Culture Urgent
Date Specimen was Collected: 01/17/25
Time Specimen was Collected: 15:15
Abnormal Lab Results
01/17/25 01/17/25
10:46 13:45
WBC 29.1 H 10^3/uL
(4.8-10.8)
RBC 3.23 L 10^6/uL
(4.20-5.40)
Hgb 10.6 L g/dL
(12.0-16.0)
Hct 31.4 L %
(37.0-47.0)
MCH 32.8 H pg
(27.0-31.0)
RDW 16.7 H %
(11.5-14.5)
Abs Immat Gran (auto) 1.4 H 10^3/uL
(0-0.05)
Absolute Neuts (auto) 24.1 H 10^3/uL
(1.4-6.5)
Absolute Monos (auto) 1.6 H 10^3/uL
(0.1-0.6)
Immature Gran % 4.6 H %
(0-0.5)
Neutrophils % 82.9 H %
(42.2-75.2)
Lymphocytes % 5.4 L %
(20.5-51.1)
Glucose 145 H mg/dl
(70-99)
Lactic Acid 2.5 H mmol/L 2.4 H mmol/L
(0.7-2.0) (0.7-2.0)
ALT 54 H U/L
(0-35)
Alkaline Phosphatase 186 H U/L
(38-126)
Total Protein 6.0 L g/dl
(6.3-8.2)
01/17/25 10:46
01/17/25 10:46
Vital Signs
Initial and Last Documented VS:
Initial Vital Signs
Temp Pulse Resp BP Pulse Ox
100.1 F 125 16 150/99 97
01/17/25 09:22 01/17/25 09:22 01/17/25 09:22 01/17/25 09:22 01/17/25 09:22
Last Documented Vital Signs
Temp Pulse Resp BP Pulse Ox
100.3 F 113 17 135/93 96
01/17/25 14:46 01/17/25 15:15 01/17/25 14:45 01/17/25 15:00 01/17/25 15:15
<Luan Shearer, - Last Filed: 01/17/25 14:46>
Orders/Labs/Results
Orders:
Orders
01/17/25 09:17
ECG [Electrocardiogram (*1)] Urgent
Reason for Study: Chest Pain
EKG- Treatment ONCE
01/17/25 10:36
CR Chest - 2 Views Urgent
Comment:
Reason For Exam: chest pain
01/17/25 10:46
COVID-19 Antigen Urgent
Source: Nasal Swab
Complete Blood Count/With Diff Urgent
Comprehensive Metabolic Panel Urgent
Lactic Acid Q4H
Comment: CANCEL 2nd LACTIC ACID IF 1st LACTIC ACID IS LESS THAN 2
NT-proBNP Urgent
Troponin I Urgent
Blood Culture Q30M
VLAD Source: Blood/Venous
Specimen Description:
Blood Culture Q30M
VLAD Source: Blood/Venous
Specimen Description:
Influenza A+B Rapid Molecular Urgent
VLAD Source: Nasal Swab
Specimen Description:
01/17/25 13:45
D-Dimer Urgent
Lactate Level [Lactic Acid] Urgent
01/17/25 13:49
Ketorolac [Toradol] 15 mg .ROUTE .STK-MED ONE
Ketorolac [Toradol] 15 mg IV NOW STA
01/17/25 14:18
Add On- LAB Urgent
Tests Added?: CRP
01/17/25 15:14
Urinalysis Reflex To Culture Urgent
Date Specimen was Collected: 01/17/25
Time Specimen was Collected: 15:15
Abnormal Lab Results
01/17/25 01/17/25
10:46 13:45
WBC 29.1 H 10^3/uL
(4.8-10.8)
RBC 3.23 L 10^6/uL
(4.20-5.40)
Hgb 10.6 L g/dL
(12.0-16.0)
Hct 31.4 L %
(37.0-47.0)
MCH 32.8 H pg
(27.0-31.0)
RDW 16.7 H %
(11.5-14.5)
Abs Immat Gran (auto) 1.4 H 10^3/uL
(0-0.05)
Absolute Neuts (auto) 24.1 H 10^3/uL
(1.4-6.5)
Absolute Monos (auto) 1.6 H 10^3/uL
(0.1-0.6)
Immature Gran % 4.6 H %
(0-0.5)
Neutrophils % 82.9 H %
(42.2-75.2)
Lymphocytes % 5.4 L %
(20.5-51.1)
Glucose 145 H mg/dl
(70-99)
Lactic Acid 2.5 H mmol/L 2.4 H mmol/L
(0.7-2.0) (0.7-2.0)
ALT 54 H U/L
(0-35)
Alkaline Phosphatase 186 H U/L
(38-126)
Total Protein 6.0 L g/dl
(6.3-8.2)
01/17/25 10:46
01/17/25 10:46
Vital Signs
Temp: 100.3 F
Initial and Last Documented VS:
Initial Vital Signs
Temp Pulse Resp BP Pulse Ox
100.1 F 125 16 150/99 97
01/17/25 09:22 01/17/25 09:22 01/17/25 09:22 01/17/25 09:22 01/17/25 09:22
Last Documented Vital Signs
Temp Pulse Resp BP Pulse Ox
100.3 F 113 17 135/93 96
01/17/25 14:46 01/17/25 15:15 01/17/25 14:45 01/17/25 15:00 01/17/25 15:15
<Willian Bassett PA-C - Last Filed: 01/17/25 15:28>
MDM/Problems Addressed
MDM/Problems Addressed:
Held a lengthy discussion with the patient about current clinical findings. Her negative cardiac enzymes rules out ACS and negative D-dimer is reassuring against pulmonary embolism. BNP is also negative. She has no x-ray findings suspicious for
pneumonia. She was noted to have a low-grade fever on arrival and leukocytosis however 1 week ago she received Neulasta injection thus this may be artifactual in the setting of recent Neulasta. She has mild lactic acidosis which also could be
explained by her metformin use. Remainder of labs are reassuring. She has no lower urinary tract voiding symptoms to suggest a UTI. At this time diagnostic considerations include pericarditis, musculoskeletal chest pain, bacteremia as a potential
cause of fever. I did recommend a CT scan of the chest to definitively rule out PE and evaluate for alternative etiology such as an occult pneumonia however the patient does not wish to undergo further radiation at this time given the numerous
studies she has had recently, most recently 11 days ago. I did discuss admission with the patient for further observation while cultures are pending and further workup/cardiac clearance however the patient is not willing to be admitted at this
time. She was given Toradol for her headache which also incidentally resolved her chest pain as well as fever. We held a long discussion at this point about clinical concerns and through shared decision making the patient has decided to be
discharged. Cultures are pending and she will be called back promptly with any positive test results. CRP is also pending at time of discharge, this could suggest possible pericarditis however given the patient's pain so easily resolved with 1
dose of NSAIDs this makes this unlikely particular in the absence of EKG changes. She will follow-up with her [facility] team on Sunday or return with worsening symptoms
<Willina Bassett PA-C - Last Filed: 01/17/25 15:28>
*Critical Care Note
Total Time (30-74mins, 75-104mins- exclusive of procedures): Not Applicable
ED Attending Note
<Willian Bassett PA-C - Last Filed: 01/17/25 15:28>
-
Portions of this chart may have been created with voice recognition software.� Occasional wrong word or��sound alike� substitutions may have occurred due to the inherent limitations of voice recognition software.
<Luan Shearer DO - Last Filed: 01/17/25 14:46>
ED Attending Note
Patient seen and examined by attending physician: Yes
I performed the substantive portion of visit, reviewed & personally made and approve the management plan that is documented in note by myself or LUIS.: Yes
ED Attending Note:
Pygxfhd-stim-gdg female with a history of cancer who presents with pain in her chest toward her back. Denies pleuritic pain. No hemoptysis. No leg cramping or calf swelling. Patient did recently have a PE study that was negative. Patient states
her symptoms are worse when she lays back. Took ibuprofen and feels better. Does have low-grade temperature of 100.3 on my examination. White count noted but recent took Neulasta. May benefit blood cultures.
Discharge Plan
Departure
Patient Disposition: Home (Routine Discharge)
Date of Disposition: 01/17/25
Time of Disposition: 15:13
Patient with high blood pressure during this ER visit?: No
Discharge Problem:
Atypical chest pain, Fever, low grade
Prescriptions:
No Action
atorvastatin 10 mg Tablet
10 mg PO HS
olanzapine 2.5 mg Tablet
2.5 mg PO HS
acetaminophen 500 mg Tablet
1,000 mg PO TID
levothyroxine 100 mcg Tablet
100 mcg PO DAILY
metformin 500 mg Tablet Extended Release 24hr
500 mg PO BID
omega 3-vitamin E-fish oil 700-15-1,100 mg-unit-mg Capsule
1 cap PO
cholecalciferol (vitamin D3) 50 mcg (2,000 unit) Tablet
50 mcg PO DAILY
bupropion HCl 300 mg Tablet Extended Release 24 Hr
300 mg PO DAILY
Referrals:
Homer Fajardo Jr., DO [Family Provider] -
Activity Restrictions/Additional Instructions:
We discussed possibilities such as heart inflammation or a blood infection as your possible causes of symptoms. We discussed possible admission however at this time you have opted for discharge home which is reasonable at this time. Please be
advised that blood culture test may prompt you to return to the emergency department. You should please take 400 mg of ibuprofen every 6 hours for pain control and return to the ER with worsening symptoms, difficulty breathing, nausea, or vomiting.
Please follow-up with your oncology team Sunday if you have not heard from us further about your test results
Interventions
Interventions:
*Risk Screen - Suicide Last Done: 01/17/25 09:25
*General Assessment Last Done: 01/17/25 10:47
*Neglect/Abuse Screening Last Done: 01/17/25 09:25
*ED- Fall Risk Assessment Last Done: 01/17/25 10:47
*ED COVID-19 Vaccine History Last Done: 01/17/25 10:47
ED- Cardiac Assessment Last Done: 01/17/25 10:47
Discharge Date and Time
Print Language: YEMENI
[2025-01-17 10:47] VITALS: BMI 34.3
[2025-01-17 11:03] LABS: Hematocrit 31.4 % (37.0-47.0); Hemoglobin 10.6 g/dL (12.0-16.0); Mean Corp Hgb Conc. 33.8 g/dL (33.0-37.0); Mean Corpuscular Hgb 32.8 pg (27.0-31.0); Mean Corpuscular Volume 97.2 fL (81.0-99.0); Mean Platelet Volume 8.8 fL (7.4-10.4); Platelet Count 178 10^3/uL (130-400); Red Blood Cell Count 3.23 10^6/uL (4.20-5.40); Red Cell Dist. Width 16.7 % (11.5-14.5); White Blood Cell Count 29.1 10^3/uL (4.8-10.8)
[2025-01-17 11:18] LABS: ALT (SGPT) 54 U/L (0-35); AST (SGOT) 24 U/L (14-36); Albumin 3.8 g/dl (3.5-5.0); Alkaline Phosphatase 186 U/L (38-126); Blood Urea Nitrogen 12 mg/dl (7-17); Calcium 9.4 mg/dl (8.4-10.2); Carbon Dioxide 24 mmol/L (22-30); Chloride 104 mmol/L (98-107); Estimated Creatinine Clearance 108 ml/min; Glucose 145 mg/dl (70-99); Potassium 3.8 mmol/L (3.5-5.1); Sodium 139 mmol/L (135-145); Total Bilirubin 0.5 mg/dl (0.2-1.3); eGFR > 60.00
[2025-01-17 11:19] LABS: Lactic Acid 2.5 mmol/L (0.7-2.0)
[2025-01-17 11:22] LABS: % Basophils 0.7 % (0-2); % Eosinophils 0.8 % (0-6); % Immature Granulocytes 4.6 % (0-0.5); % Lymphocytes 5.4 % (20.5-51.1); % Monocytes 5.6 % (1.7-9.3); % Neutrophils 82.9 % (42.2-75.2); Absolute Basophils 0.2 10^3/uL (0-0.2); Absolute Eosinophils 0.2 10^3/uL (0-0.7); Absolute Immature Granulocytes 1.4 10^3/uL (0-0.05); Absolute Lymphocytes 1.6 10^3/uL (1.2-3.4); Absolute Monocytes 1.6 10^3/uL (0.1-0.6); Absolute Neutrophils 24.1 10^3/uL (1.4-6.5); Nucleated Red Blood Cells % 0.1 %
[2025-01-17 11:30] LABS: NT-proBNP 37.8 pg/ml; Troponin I < 0.012 ng/ml
[2025-01-17 11:54] VITALS: BP 135/89
[2025-01-17 12:00] VITALS: BP 140/86
[2025-01-17 12:22] LABS: COVID-19 Antigen Negative (Negative)
[2025-01-17 13:00] VITALS: BP 150/93
[2025-01-17] MEDS: TORADOL 15 MG IV (13:50)
[2025-01-17 14:08] LABS: Lactic Acid 2.4 mmol/L (0.7-2.0)
[2025-01-17 14:11] LABS: D-Dimer 0.32 ug/mlFEU (0.00-0.50)
[2025-01-17 15:00] VITALS: BP 135/93
[2025-01-17 15:40] LABS: Urine Albumin Negative (Neg - Trace); Urine Bilirubin Negative (Negative); Urine Character Clear (Clear); Urine Color Yellow; Urine Glucose Negative (Negative); Urine Ketone Negative (Negative); Urine Leukocyte Negative (Negative); Urine Nitrite Negative (Negative); Urine Occult Blood Negative (Negative); Urine Specific Gravity 1.015 (<1.030); Urine Urobilinogen Negative (Neg - 1+)
== END 2025-01-17 15:34 | disposition home or self-care (01) ==
LOC: EMR 09:16
PROVIDERS: Physician Assistant; EMERGENCY PHYSICIAN Emergency Medicine; FAMILY PHYSICIAN Family Medicine
DX: R07.89 Other chest pain (principal); R50.9 Fever, unspecified; C49.9 Malignant neoplasm of connective and soft tissue, unspecified; E03.9 Hypothyroidism, unspecified; E87.20 Acidosis, unspecified; R73.03 Prediabetes; Z79.84 Long term (current) use of oral hypoglycemic drugs; Z90.49 Acquired absence of other specified parts of digestive tract; Z11.52 Encounter for screening for COVID-19
CPT/HCPCS: 99284; 96374; 71046; 80053; 81003; 83605; 83880; 84484; 85025; 85379; 86140; 87040; 87502; 87811; 93005

== ENCOUNTER → 2025-03-14 08:25 | Outpatient (REF) | payer BC, SELFPAY ==
[2025-03-14 10:26] LABS: % Basophils 0.3 % (0-2); % Eosinophils 2.9 % (0-6); % Immature Granulocytes 0.3 % (0-0.5); % Lymphocytes 20.5 % (20.5-51.1); % Monocytes 6.7 % (1.7-9.3); % Neutrophils 69.3 % (42.2-75.2); Absolute Eosinophils 0.2 10^3/uL (0-0.7); Absolute Lymphocytes 1.3 10^3/uL (1.2-3.4); Absolute Monocytes 0.4 10^3/uL (0.1-0.6); Absolute Neutrophils 4.3 10^3/uL (1.4-6.5); Hematocrit 32.6 % (37.0-47.0); Hemoglobin 10.9 g/dL (12.0-16.0); Mean Corp Hgb Conc. 33.4 g/dL (33.0-37.0); Mean Corpuscular Hgb 31.2 pg (27.0-31.0); Mean Corpuscular Volume 93.4 fL (81.0-99.0); Mean Platelet Volume 9.2 fL (7.4-10.4); Nucleated Red Blood Cells % 0 %; Platelet Count 260 10^3/uL (130-400); Red Blood Cell Count 3.49 10^6/uL (4.20-5.40); White Blood Cell Count 6.2 10^3/uL (4.8-10.8)
[2025-03-14 10:55] LABS: ALT (SGPT) 39 U/L (0-35); AST (SGOT) 23 U/L (14-36); Albumin 4.4 g/dl (3.5-5.0); Alkaline Phosphatase 115 U/L (38-126); Blood Urea Nitrogen 9 mg/dl (7-17); Carbon Dioxide 25 mmol/L (22-30); Chloride 107 mmol/L (98-107); Glucose 119 mg/dl (70-99); HDL Cholesterol 54 mg/dl; LDL Cholesterol, Calculated 61 mg/dl; Potassium 4.1 mmol/L (3.5-5.1); Sodium 143 mmol/L (135-145); Total Bilirubin 0.8 mg/dl (0.2-1.3); Total Cholesterol 138 mg/dl (50-199); Triglyceride 116 mg/dl (10-149); Very Low Density Lipoprotein 23 mg/dl (0-30); eGFR > 60.00
[2025-03-14 11:26] LABS: TSH Reflex To Free T4 1.98 uIU/ml (0.47-4.68)
== END ==
LOC: REG 08:25
PROVIDERS: ATTENDING PHYSICIAN Family Medicine
DX: C49.9 Malignant neoplasm of connective and soft tissue, unspecified (principal); C18.1 Malignant neoplasm of appendix; Z15.89 Genetic susceptibility to other disease; E28.2 Polycystic ovarian syndrome; R73.01 Impaired fasting glucose; E03.9 Hypothyroidism, unspecified
CPT/HCPCS: 36415; 80053; 80061; 83036; 84443; 85025

== ENCOUNTER → 2025-05-30 10:17 | Outpatient (REF) | payer BC, SELFPAY | LOC: WDC 10:17 | PROVIDERS: ATTENDING PHYSICIAN Family Medicine | DX: Z12.31 Encounter for screening mammogram for malignant neoplasm of breast (principal) | CPT/HCPCS: 77063; 77067 ==